=== PATIENT | male | born 1995 | race Caucasian/White ===

== ENCOUNTER 2021-02-16 13:06 | Emergency (ER) | payer OTHER, SELFPAY ==
[2021-02-16 14:25] VITALS: BP 127/77; PULSE 106; RESP 16; TEMP 36.6; O2SAT 98; BMI 27.5
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
[2021-02-16 17:48] VITALS: BP 122/71; PULSE 91; RESP 16; O2SAT 98
== END 2021-02-16 17:49 | disposition home or self-care (01) ==
PROVIDERS: Emergency Provider Physician Assistant
DX: S20.212A Contusion of left front wall of thorax, initial encounter (principal); V59.9XXA Occupant (driver) (passenger) of pick-up truck or van injured in unspecified traffic accident, initial encounter; Y99.0 Civilian activity done for income or pay
CPT/HCPCS: 71101; 99282

== ENCOUNTER → 2021-02-23 10:30 | Outpatient (BNVA) | payer OTHER, SELFPAY | PROVIDERS: Visit Provider Family Medicine | DX: S80.02XA Contusion of left knee, initial encounter (principal); Y99.0 Civilian activity done for income or pay; S20.212A Contusion of left front wall of thorax, initial encounter; V89.2XXA Person injured in unspecified motor-vehicle accident, traffic, initial encounter | CPT/HCPCS: 73562 ==